=== PATIENT | male | born 1965 | race Caucasian/White ===

== ENCOUNTER 2017-03-20 19:31 | Emergency (ER) | payer OTHER ==
[2017-03-20 19:49] VITALS: RESP 16; TEMP 98.8
[2017-03-20] MEDS: NS IRR ONE (20:05)
--- NOTE | 2017-03-20 20:56 | EDPHY ---
H & P Time Seen by Provider: 03/20/17 19:41 HPI/ROS: CHIEF COMPLAINT: Chemical burn to the eye HISTORY OF PRESENT ILLNESS: This is a 51-year-old gentleman who was using a commercial goldman, mold, and mildew remover ([employer]) which contains 9.9% benzyl ammonia chloride, solution has a pH of 8.0. Patient had makes the solution with water and was applying at using a a hose attached to a spray bottle. The wand came loose and the solution sprayed onto his face. This occurred approximately 5-10 minutes prior to arrival. Solution also splattered onto his face and he notices that the left shoulder if his shirt as well as his left thigh pain and leg is damp. Patient denies swallowing any of the solution. He has no respiratory distress. No burning in his throat. No cough. He was otherwise well. REVIEW OF SYSTEMS: Aside from elements discussed in the HPI, a comprehensive 10-point review of systems was reviewed and is negative. PAST MEDICAL HISTORY: Hypertension. SOCIAL HISTORY: Here with his . VITAL SIGNS: see nurse's notes. GENERAL: Well-developed, well-nourished, in no acute distress. Complaining of irritation in his eyes bilaterally. HEENT: Eyes are bilaterally injected. There is no obvious burn around the eyelids. No obvious burn on the forehead. Pupils are equal round reactive to light. Diffuse conjunctival injection bilaterally. No scarring or liquifaction is visible currently. Mouth: No oral lesions. No drooling. Neck: supple, FROM. LUNGS: Clear to auscultation bilaterally, no wheezes, rhonchi or rales. CARDIAC: Regular rate and rhythm, no rubs, murmurs or gallops. ABDOMEN: Soft, nontender, nondistended, bowel sounds normal. BACK: No CVA tenderness. No vertebral tenderness. EXTREMITIES: No edema, FROM. NEURO: Alert and oriented, grossly nonfocal. SKIN: Warm and dry, no rash. Smoking Status: Never smoked Constitutional: Initial Vital Signs Temperature (C) 37.1 C 03/20/17 19:45 Heart Rate 75 03/20/17 19:45 Respiratory Rate 16 03/20/17 19:45 Blood Pressure 145/94 H 03/20/17 19:45 O2 Sat (%) 93 03/20/17 19:45 O2 Delivery Mode Room Air Allergies/Adverse Reactions: No Known Allergies Allergy (Unverified 03/20/17 19:44) Home Medications: Medication Instructions Recorded Losartan Potassium 03/20/17 Prevacid 03/20/17 Medical Decision Making ED Course/Re-evaluation: pH of the patient's eyes on initial evaluation was 8.0. Bilateral irrigation utilizing Wilfrido lens was immediately undertaken. Patient had 1 L of irrigant through the Wilfrido lens to each eye. Recheck demonstrates pH of 8.0 in the corners of the eye. Additional L of normal saline irrigant was administered to each eye. Patient also had soap and water decontamination of his left forehead and left side of the face. Course was discussed with poison control. Case [id number]. They recommend continuous irrigation until the patient's pH is 7. They also recommend that the patient have a 30 minutes shower with soap and water to remove any contaminant from his skin. Patient received a total of for 4500 cc of irrigation. He reports discomfort in his right eye has resolved. He reports ongoing gritty irritation in his left eye. PH recheck consistently is 7.5-8.0. Fluorescein was instilled to check for corneal abrasions. None were visualized. Patient's course was discussed with Dr. Ro. She recommends that the patient is feeling better and only has irritation of his eyes he should be discharged with artificial tears, erythromycin ointment 3 times a day for 3 days , and close follow-up. I discussed these recommendations with the patient. I again offered him ongoing irrigation. He believes the irritation in his left eye is due to the use of the Wilfrido lens in the irrigation. He does understand the importance of making sure the fluid has been fully washed out. On re-examination of the eye the left eye has minimal conjunctival injection. Patient was discharged home with instructions as above. He understands that if his pain should worsen tonight, if he should have pain tomorrow, or have other concerns he may follow up with Dr. Ro. Differential Diagnosis: Differential diagnosis for the patient's presenting complaints includes corneal abrasion, conjunctivitis, chemical burn, topical skin burn, alkali burn, acid burn. - Data Points Medications Given: Discontinued Medications Erythromycin (Erythromycin 0.5%) 1 jean EACHEYE ONCE ONE Stop: 03/20/17 23:03 Last Admin: 06/16/17 23:09 Dose: 1 jean Sodium Chloride (Ns) 4,500 mls @ 0 mls/hr IRR ONCE ONE PRN Reason: Wide Open Stop: 03/20/17 21:26 Last Admin: 03/20/17 20:05 Dose: 4,500 mls Departure - Departure Disposition: Home, Routine, Self-Care Clinical Impression: Alkaline chemical burn of cornea and conjunctival sac Qualifiers: Encounter type: initial encounter Laterality: unspecified laterality Qualified Code(s): T26.60XA - Corrosion of cornea and conjunctival sac, unspecified eye, initial encounter Eye pain Qualifiers: Laterality: bilateral Qualified Code(s): H57.13 - Ocular pain, bilateral Condition: Good Instructions: Chemical Eye Perry (ED), Chemical Skin Burn (ED) Additional Instructions: Please take of 30 minutes shower with soap and water when you arrived home. Please use artificial tears every couple of hours when you are awake. Please use erythromycin ointment 3 times a day for the next 3 days. Your eyes should feel much better by tomorrow morning. If you have severe pain in your eyes or have other concerns, you may call Dr. Ro's office at [phone] and leave a message. She will return the call. Referrals: ELBERT LEE DO [Other] - As per Instructions Doreen Ro MD [Non Staff Provider (MD)] - As per Instructions
[2017-03-20] MEDS ORDERED: ERYTHROMYCIN 0.5% 1 GM OPHT.OINT EACHEYE ONE (23:02)
[2017-03-20 23:32] VITALS: BP 142/75; PULSE 74; O2SAT 98
== END 2017-03-20 23:00 | disposition home or self-care (01) ==
LOC: CED 19:31
DX: T54.3X1A Toxic effect of corrosive alkalis and alkali-like substances, accidental (unintentional), initial encounter (principal); T26.61XA Corrosion of cornea and conjunctival sac, right eye, initial encounter; T26.62XA Corrosion of cornea and conjunctival sac, left eye, initial encounter; I10 Essential (primary) hypertension; T32.0 Corrosions involving less than 10% of body surface; X58.XXXA Exposure to other specified factors, initial encounter

== ENCOUNTER → 2018-03-23 | Outpatient (CLI) | payer OTHER | LOC: CIMAGING 08:30 | PROVIDERS: ATTEND Family Medicine | DX: M54.12 Radiculopathy, cervical region (principal); M50.30 Other cervical disc degeneration, unspecified cervical region | CPT/HCPCS: 72040-PO ==

== ENCOUNTER 2018-04-13 23:31 | Emergency (ER) | payer OTHER ==
--- NOTE | 2018-04-13 23:43 | EDPHY ---
H & P Stated Complaint: c/o HUTCHINSON on and off x 6wks - inc tonight- took 800mg motrin @ 2200 Time Seen by Provider: 04/13/18 23:42 HPI/ROS: 53-year-old male with a history of hypertension, GERD with headache, neck and shoulder pain for the last 6 weeks. Has had some radiation of neck pain into left shoulder , left upper arm. He states today's headache is the worst headache of his life he feels like his head is going to explode and he rates his pain as a 15/10. Additionally he has ongoing neck pain, left upper trapezius pain and radiation of that pain into the left shoulder and left hand. He saw a pcp today who started him on Oxycontin for the pain and he is awaiting approval from his insurance for an MRI. No fever or chills. Review of systems as per hpi General no fever no chills no weakness HEENT no eye pain no eye discharge. No eye redness, no sore throat Respiratory no cough, no shortness of breath Cardiac no chest pain, no peripheral edema GI no abdominal pain, no diarrhea, no constipation, no nausea, no vomiting no flank pain, no hematuria, no dysuria Musculoskeletal positive myalgias, no joint pain Heme no easy bruising, no easy bleeding Endo no polyuria, no polydipsia Skin no rashes, no pruritus Neuro no syncope, no dizziness, positive headaches Psych is no suicidal ideation, no homicidal ideation Source: Patient Exam Limitations: No limitations - Personal History Current Tetanus Diphtheria and Acellular Pertussis (TDAP): Yes Tetanus Vaccine Date: unsure - Medical/Surgical History Hx Asthma: No Hx Chronic Respiratory Disease: No Hx Diabetes: No Hx Cardiac Disease: Yes Hx Renal Disease: No Hx Cirrhosis: No Hx Alcoholism: No Hx HIV/AIDS: No Hx Splenectomy or Spleen Trauma: No Other PMH: hypertension,GERD - Family History Significant Family History: No pertinent family hx - Social History Smoking Status: Never smoked Alcohol Use: Occasionally Drug Use: None - Physical Exam Exam: 53-year-old male in severe distress secondary to headache Pressure 179/117 HEENT atraumatic normocephalic, extraocular muscles intact, anicteric Neck supple, midline tenderness to palpation of cervical spine Lungs clear to auscultation bilaterally Heart regular rate and rhythm without murmur rub or gallop Abdomen nondistended normoactive bowel sounds soft nontender Back no CVA tenderness, no step-offs, no thoracic or lumbar spinal tenderness Left upper back tenderness no ecchymosis no rash Extremities no cyanosis clubbing or edema Neuro alert and oriented, no focal deficits gait intact Constitutional: Initial Vital Signs Temperature (C) 36.6 C 04/13/18 23:39 Heart Rate 84 04/13/18 23:39 Respiratory Rate 20 04/13/18 23:39 Blood Pressure 179/117 H 04/13/18 23:39 O2 Sat (%) 94 04/13/18 23:39 O2 Delivery Mode Room Air O2 (L/minute) 2 Allergies/Adverse Reactions: No Known Allergies Allergy (Unverified 03/20/17 19:44) Home Medications: Medication Instructions Recorded Losartan Potassium 03/20/17 Prevacid 03/20/17 Gabapentin 04/13/18 Losartan Potassium 04/13/18 oxyCODONE HCL/ACETAMINOPHEN 04/14/18 Medical Decision Making ED Course/Re-evaluation: Patient seen and evaluated for"the worst headache of his life" Location of headaches or diffuse, occipital and vertex CT brain negative CT C-spine DJD at C5-C6 Labs WBC 10 H&H 18 and 53 Sed rate 5 CRP 15 Chest x-ray negative EKG normal sinus rhythm, nonspecific ST flattening in the inferior leads Impression/plan Severe headache, suddenly worsening today Rule out subarachnoid hemorrhage Discussed with attending physician quality control supervisor at [facility], to continue the workup by performing an MRI MRA. Differential Diagnosis: Differential diagnosis considered but not limited to: Severe headache-subarachnoid hemorrhage, brain tumor, cerebral edema, venous sinus thrombosis, meningitis, headache secondary to hypertension Neck pain-cervical radiculopathy, osteoarthritis, cervical strain, epidural abscess - Data Points Laboratory Results: Laboratory Results 04/13/18 23:30 04/14/18 04/14/18 04/13/18 00:00 00:00 23:30 Hct ESR PT INR APTT POC Sodium 142 mEq/L mEq/L (135-145) POC Potassium 3.4 mEq/L mEq/L (3.3-5.0) POC Chloride 101.0 mEq/L mEq/L (97-110) POC Total CO2 30 mEq/L mEq/L (22-31) POC BUN 17 mg/dL mg/dL (7-23) POC Creatinine 1.3 mg/dL mg/dL (0.7-1.3) POC Glucose 118 mg/dL H mg/dL (70-100) POC Calcium 9.4 mg/dL mg/dL (8.5-10.4) Magnesium 2.0 mg/dL mg/dL (1.6-2.3) POC Troponin I 0.00 ng/mL ng/mL (0.00-0.08) C-Reactive Protein 15.0 mg/L H mg/L (<10.0) 04/13/18 04/13/18 23:30 23:30 Hct 53.5 % H % (40.0-51.0) ESR 5 MM/HR MM/HR (0-20) PT 12.6 SEC SEC (12.0-15.0) INR 0.92 (0.83-1.16) APTT 28.1 SEC SEC (23.0-38.0) POC Sodium POC Potassium POC Chloride POC Total CO2 POC BUN POC Creatinine POC Glucose POC Calcium Magnesium POC Troponin I C-Reactive Protein Medications Given: Discontinued Medications Diphenhydramine HCl (Benadryl Injection) 25 mg IVP EDNOW ONE Stop: 04/14/18 00:01 Last Admin: 04/14/18 00:31 Dose: 25 mg Fentanyl (Sublimaze) 50 mcg IVP EDNOW ONE Stop: 04/14/18 00:01 Last Admin: 04/14/18 00:31 Dose: 50 mcg Fentanyl (Sublimaze) 50 mcg IVP EDNOW ONE Stop: 04/14/18 02:10 Last Admin: 04/14/18 02:12 Dose: 50 mcg Labetalol HCl (Trandate Injection) 20 mg IVP EDNOW ONE Stop: 04/13/18 23:54 Last Admin: 04/14/18 00:31 Dose: 20 mg Metoclopramide HCl (Reglan Injection) 10 mg IVP EDNOW ONE Stop: 04/14/18 00:01 Last Admin: 04/14/18 00:31 Dose: 10 mg Point of Care Test Results: CBC CBC Collection Date 04/14/18 CBC Collection Time 23:55 WBC 10.1 RBC 6.31 HGB 18.3 HCT 54.7 PLT 265 Neut # 7.5 Neut 73.7 LYMPH # 1.5 LYMPH 15.3 Other WBC # 1.1 Other WBC 11 MCV 86.7 Chemistry 04/14/18 04/14/18 00:00 00:00 POC Sodium 142 mEq/L mEq/L (135-145) POC Potassium 3.4 mEq/L mEq/L (3.3-5.0) POC Chloride 101.0 mEq/L mEq/L (97-110) POC Total CO2 30 mEq/L mEq/L (22-31) POC BUN 17 mg/dL mg/dL (7-23) POC Creatinine 1.3 mg/dL mg/dL (0.7-1.3) POC Glucose 118 mg/dL H mg/dL (70-100) POC Calcium 9.4 mg/dL mg/dL (8.5-10.4) POC Troponin I 0.00 ng/mL ng/mL (0.00-0.08) D-Dimer D-Dimer Collection Date 04/14/18 D-Dimer Collection Time 23:55 D-Dimer (ng/ml) <100 Departure - Departure Disposition: [facility] ER Clinical Impression: Severe headache Condition: Fair Additional Instructions: Patient to go directly to [facility] ED for further evaluation of severe headache. Referrals: Patient,NotPresent [Unknown] - As per Instructions
[2018-04-13] MEDS ORDERED: LABETALOL HCL 5 MG/ML 20 ML MDV IVP ONE (23:53)
[2018-04-14] MEDS ORDERED: METOCLOPRAMIDE 10 MG/2 ML VIAL IVP ONE
--- NOTE | 2018-04-14 00:06 | CPEKG ---
Heart Rate: 92 RR Interval: 652 P-R Interval: 156 QRSD Interval: 88 QT Interval: 320 QTC Interval: 396 P Evans: 54 QRS Evans: 45 T Wave Evans: -13 EKG Severity - BORDERLINE ECG - EKG Impression: SINUS RHYTHM EKG Impression: BORDERLINE INFERIOR Q WAVES EKG Impression: BORDERLINE T ABNORMALITIES, INFERIOR LEADS Electronically Signed By: Sebastian Ortiz 18-Apr-2018 09:11:14
[2018-04-14 01:03] LABS: INR 0.92 (0.83-1.16); PROTIME(PATIENT) 12.6 SEC (12.0-15.0)
[2018-04-14] MEDS ORDERED: fentaNYL 100 MCG/2 ML INJ IVP ONE ×2 (02:09)
[2018-04-14] MEDS ORDERED: HYDROmorphONE/DILAUDID 2 MG/ML INJ IVP ONE (03:11)
[2018-04-14] MEDS ORDERED: NS 1,000 ML IV ONE (03:11)
[2018-04-14] MEDS ORDERED: PROMETHAZINE HCL 25 MG/ML INJ IVP ONE (03:11)
--- NOTE | 2018-04-14 03:18 | EDPHY ---
H & P Stated Complaint: c/o HUTCHINSON on and off x 6wks - inc jean- took 800mg motrin @ 2200 Time Seen by Provider: 04/13/18 23:42 HPI/ROS: HPI CHIEF COMPLAINT: Headache, transfer from [facility] HISTORY OF PRESENT ILLNESS: Patient very pleasant 53-year-old male, he has a history of hypertension and takes losartan, additionally has a history of headaches, however does not take any daily headache medication. He states tonight around 10:00 p.m. He was trying to go to sleep and he developed a headache. Patient describes the headache initially stabbing from his left shoulder and left neck it radiates up from his neck posteriorly up through his occiput on both sides and then gradually goes over the top of his head. He reports to me that he did not have any vomiting. It started at 10:00 p.m.. He does not remember it being thunderclap. However he does remember being very intense possibly the worst headache of his life. He states his skin was very sensitive when he went to touch his scalp. He states he could not touches scalp as it caused the pain to get worse. Patient denies any focal weakness or numbness or tingling, denies visual disturbance. He did have photophobia. Denies any chest pain or significant shortness of breath. Denies fever. No nuchal rigidity. Patient reports to me he has been having headaches for the past 6 weeks that mainly stem from his left neck and go down his left shoulder of which she describes as a cervical radiculopathy. States he seen his primary care doctor multiple times for this and put on narcotic pain medicine as well as gabapentin. Without much relief. His primary care doctor ordered an MRI of his cervical spine a multiple times however it kept getting declined by insurance company. Jean he went to [facility] Emergency room for headache around 11 o'clock at night. At that time he had a workup for his headache which included a CT scan of his head and CT cervical spine without contrast which is unremarkable. Was noted he was hypertensive there and he was given pain control and blood pressure medication and his headache gradually improved, and blood pressure came down. Is neurological exam was unremarkable. After further discussion with the patient and ER physician it was determined that given this is the worst headache of his life and he was hypertensive that subarachnoid hemorrhage should be ruled out and recommend MRI of the brain and MRA. He was sent over to [facility] emergency room for the studies. Upon arrival to the emergency room he is alert and oriented he is in no acute distress, he states his headache is much improved. Denies any chest pain shortness of breath, denies focal weakness numbness or tingling. He states the headache was global stemmed from his neck up through the back of the occiput gradually throughout the top of his head. Very sensitive to touch. Of note upon arrival to the emergency room he is hypertensive. Additionally patient is reported to me that he has had multiple chiropractic adjustments. He does state he has been compliant with his losartan. He typically takes it in the morning. Past Medical History: Hypertension, headaches Past Surgical History: Denies any recent surgery Social History: Denies daily use drugs alcohol tobacco. at bedside. Family History: Noncontributory ROS REVIEW OF SYSTEMS: A comprehensive 10 point review of systems is otherwise negative aside from elements mentioned in the history of present illness. Exam Constitutional appears well nontoxic no acute distress, triage nursing summary reviewed, vital signs reviewed, awake/alert. Hypertensive upon arrival. Eyes normal conjunctivae and sclera, EOMI, PERRLA. HENT normal inspection, atraumatic, moist mucus membranes, no epistaxis, neck supple/ no meningismus, no raccoon eyes. Respiratory clear to auscultation bilaterally, normal breath sounds, no respiratory distress, no wheezing. Cardiovascular rate normal, regular rhythm, no murmur, no edema, distal pulses normal. Gastrointestinal soft, non-tender, no rebound, no guarding, normal bowel sounds, no distension, no pulsatile mass. Genitourinary no CVA tenderness. Musculoskeletal no midline vertebral tenderness, full range of motion, no calf swelling, no tenderness of extremities, no meningismus, good pulses, neurovascularly intact. Skin pink, warm, & dry, no rash, skin atraumatic. Neurologic awake, alert and oriented x 3, AAOx3, moves all 4 extremities equally, motor intact, sensory intact, CN II-XII intact, normal cerebellar, normal vision, normal speech. Psychiatric normal mood/affect. Heme/Lymph/Immune no lymphadenopathy. Differential Diagnosis: Includes but is not limited to in a particular order tension headache, cluster headache, migraine headache, subarachnoid hemorrhage, cervical radiculopathy, cervical radiculopathy causing headache or migraine headache, muscle spasm, neck spasm Medical Decision Making: Plan for this patient: Will proceed MRI brain without, MRA brain head and neck. Re-evaluation: MRI of the brain without contrast called to me by Dr. Rosas, negative. MRA of the head and neck is negative for any arterial disease process. Additionally noted on the MRI of the head the CSF around the optic nerve space is little bit enlarged skin seen in intracranial hypertension. Recommend outpatient ophthalmology evaluation. And Neurology outpatient. I went over this with the patient. He does feel much better in terms of pain control after IV pain medicine, is blood pressures improved. He is comfortable going home. I did discussed return precautions with me understands return emergency room if develops worsening headache, neck pain, fever, vomiting or not doing well. Will separately given ophthalmology referral. Recommend he follows back up with his primary care doctor. Source: Patient - Personal History Current Tetanus Diphtheria and Acellular Pertussis (TDAP): Yes Tetanus Vaccine Date: unsure - Medical/Surgical History Hx Asthma: No Hx Chronic Respiratory Disease: No Hx Diabetes: No Hx Cardiac Disease: Yes Hx Renal Disease: No Hx Cirrhosis: No Hx Alcoholism: No Hx HIV/AIDS: No Hx Splenectomy or Spleen Trauma: No Other PMH: hypertension,GERD - Family History Significant Family History: No pertinent family hx - Social History Smoking Status: Never smoked Constitutional: Initial Vital Signs Temperature (C) 36.6 C 04/13/18 23:39 Heart Rate 84 04/13/18 23:39 Respiratory Rate 20 04/13/18 23:39 Blood Pressure 179/117 H 04/13/18 23:39 O2 Sat (%) 94 04/13/18 23:39 O2 Delivery Mode Room Air O2 (L/minute) 2 Allergies/Adverse Reactions: No Known Allergies Allergy (Unverified 03/20/17 19:44) Home Medications: Medication Instructions Recorded Losartan Potassium 03/20/17 Prevacid 03/20/17 Gabapentin 04/13/18 Losartan Potassium 04/13/18 oxyCODONE HCL/ACETAMINOPHEN 04/14/18 Medical Decision Making - Data Points Laboratory Results: Laboratory Results 04/13/18 23:30 04/14/18 04/14/18 04/13/18 00:00 00:00 23:30 Hct ESR PT INR APTT POC Sodium 142 mEq/L mEq/L (135-145) POC Potassium 3.4 mEq/L mEq/L (3.3-5.0) POC Chloride 101.0 mEq/L mEq/L (97-110) POC Total CO2 30 mEq/L mEq/L (22-31) POC BUN 17 mg/dL mg/dL (7-23) POC Creatinine 1.3 mg/dL mg/dL (0.7-1.3) POC Glucose 118 mg/dL H mg/dL (70-100) POC Calcium 9.4 mg/dL mg/dL (8.5-10.4) Magnesium 2.0 mg/dL mg/dL (1.6-2.3) POC Troponin I 0.00 ng/mL ng/mL (0.00-0.08) C-Reactive Protein 15.0 mg/L H mg/L (<10.0) 04/13/18 04/13/18 23:30 23:30 Hct 53.5 % H % (40.0-51.0) ESR 5 MM/HR MM/HR (0-20) PT 12.6 SEC SEC (12.0-15.0) INR 0.92 (0.83-1.16) APTT 28.1 SEC SEC (23.0-38.0) POC Sodium POC Potassium POC Chloride POC Total CO2 POC BUN POC Creatinine POC Glucose POC Calcium Magnesium POC Troponin I C-Reactive Protein Medications Given: Discontinued Medications Diphenhydramine HCl (Benadryl Injection) 25 mg IVP EDNOW ONE Stop: 04/14/18 00:01 Last Admin: 04/14/18 00:31 Dose: 25 mg Fentanyl (Sublimaze) 50 mcg IVP EDNOW ONE Stop: 04/14/18 00:01 Last Admin: 04/14/18 00:31 Dose: 50 mcg Fentanyl (Sublimaze) 50 mcg IVP EDNOW ONE Stop: 04/14/18 02:10 Last Admin: 04/14/18 02:12 Dose: 50 mcg Hydromorphone HCl (Dilaudid) 1 mg IVP EDNOW ONE Stop: 04/14/18 03:12 Last Admin: 04/14/18 03:17 Dose: 1 mg Sodium Chloride (Ns) 1,000 mls @ 0 mls/hr IV ONCE ONE PRN Reason: Wide Open Stop: 04/14/18 03:12 Last Admin: 04/14/18 03:18 Dose: 1,000 mls Labetalol HCl (Trandate Injection) 20 mg IVP EDNOW ONE Stop: 04/13/18 23:54 Last Admin: 04/14/18 00:31 Dose: 20 mg Metoclopramide HCl (Reglan Injection) 10 mg IVP EDNOW ONE Stop: 04/14/18 00:01 Last Admin: 04/14/18 00:31 Dose: 10 mg Promethazine HCl (Phenergan) 6.25 mg IVP ONCE ONE Stop: 04/14/18 03:12 Last Admin: 04/14/18 03:20 Dose: 6.25 mg Point of Care Test Results: CBC CBC Collection Date 04/14/18 CBC Collection Time 23:55 WBC 10.1 RBC 6.31 HGB 18.3 HCT 54.7 PLT 265 Neut # 7.5 Neut 73.7 LYMPH # 1.5 LYMPH 15.3 Other WBC # 1.1 Other WBC 11 MCV 86.7 Chemistry 04/14/18 04/14/18 00:00 00:00 POC Sodium 142 mEq/L mEq/L (135-145) POC Potassium 3.4 mEq/L mEq/L (3.3-5.0) POC Chloride 101.0 mEq/L mEq/L (97-110) POC Total CO2 30 mEq/L mEq/L (22-31) POC BUN 17 mg/dL mg/dL (7-23) POC Creatinine 1.3 mg/dL mg/dL (0.7-1.3) POC Glucose 118 mg/dL H mg/dL (70-100) POC Calcium 9.4 mg/dL mg/dL (8.5-10.4) POC Troponin I 0.00 ng/mL ng/mL (0.00-0.08) D-Dimer D-Dimer Collection Date 04/14/18 D-Dimer Collection Time 23:55 D-Dimer (ng/ml) <100 Departure - Departure Disposition: Home, Routine, Self-Care Clinical Impression: Severe headache Condition: Fair Instructions: Acute Headache (ED), Cervical Radiculopathy (ED), Neck Pain (ED) , Acute Neck Pain (ED) Additional Instructions: 1. Follow up with your primary care doctor. 2. Return emergency room if you have worsening pain questions or concerns. Referrals: Patient,NotPresent [Unknown] - As per Instructions Marshal Dixon MD [Medical Doctor] - As per Instructions
[2018-04-14] MEDS ORDERED: GADOBUTROL 10 ML VIAL IVP ONE (03:30)
[2018-04-14 05:33] VITALS: BP 137/89
[2018-04-14] MEDS ORDERED: LOSARTAN POTASSIUM 50 MG TAB PO SCH (09:00)
== END 2018-04-14 05:52 | disposition home or self-care (01) ==
LOC: CED 04-14 02:26
DX: R51 Headache (principal); I10 Essential (primary) hypertension
CPT/HCPCS: 70450-PO; 71046-PO; 72125-PO; 80048-PO; 84484-PO; 96374; A9585; J1170; J1200; J2550; J2765; J3010

== ENCOUNTER 2018-12-29 23:35 | Observation (INO) | payer OTHER ==
[2018-12-30] MEDS ORDERED: METOCLOPRAMIDE 10 MG/2 ML VIAL IVP ONE (00:03)
[2018-12-30] MEDS ORDERED: LABETALOL HCL 5 MG/ML 20 ML MDV IVP ONE (00:03)
[2018-12-30] MEDS ORDERED: ONDANSETRON 4 MG/2 ML VIAL ONE (00:06)
--- NOTE | 2018-12-30 00:09 | EDPHY ---
H & P Stated Complaint: Dizzy, nausea, Chest pressure, headache. Time Seen by Provider: 12/30/18 00:01 HPI/ROS: This patient reports symptoms of headache, dizziness, nausea clamminess. His drove here by private car also provides history. He explains that he had bad headache at 8:00 p.m. And took 6 ibuprofen with relief until he developed symptoms of dizziness, nausea with diaphoresis. His reports that he was "stumbling on his feet at this point seems slightly confused. He then developed recurrent headache with diffuse in location pressure in sensation 8/ 10 associated with photophobia. Shortly after arrival here he also reports onset of chest pain 2/10 intensity. He has ongoing feeling of dizziness and nausea currently. He is noted to be hypertensive here with a diastolic of 115 initially and reports compliance with his losartan medication that he takes daily now for 5 years. He denies any intoxication with alcohol or drugs tonight. ROS: Constitutional: No recent fevers. He felt well prior to this evening. HEENT: Chronic coryza but no recent sinus pain or other new URI symptoms Pulmonary: No shortness of breath or cough Cardiovascular: He denies any heart palpitations. No lower extremity swelling. GI: Nausea but no vomiting. No abdominal pain. : He reports a one-week history of urinary urgency, mild difficulty passing urine slight dysuria. No testicle pain or swelling. No flank pain. Neuro: He denies any current confusion. No focal numbness tingling or weakness. He has difficulty describing the nature of his dizziness. 10 point review of symptoms is performed and otherwise negative with exception of pertinent positives and negatives listed in HPI and ROS Source: Patient Exam Limitations: No limitations - Personal History Current Tetanus/Diphtheria Vaccine: Unsure Current Tetanus Diphtheria and Acellular Pertussis (TDAP): Unsure Tetanus Vaccine Date: unsure - Medical/Surgical History PMH: In April of 2018 this patient had a similar severe headache presented to this facility also with hypertension at that time treated with antihypertensive and IV analgesics with some relief. He subsequently had CT head CT angio neck, MR I and MRA of head and neck with possible tiny aneurysmal dilatation of the distal right internal carotid artery. No other pathology noted at that time Hx Asthma: No Hx Chronic Respiratory Disease: No Hx Diabetes: No Hx Cardiac Disease: Yes Hx Renal Disease: No Hx Cirrhosis: No Hx Alcoholism: No Hx HIV/AIDS: No Hx Splenectomy or Spleen Trauma: No Other PMH: hypertension,GERD,hernia repair 2017 - Family History Significant Family History: No pertinent family hx - Social History Smoking Status: Never smoked Alcohol Use: Rarely Drug Use: None Additional Social History: He denies any stimulants today. No significant caffeine intake. - Physical Exam Exam: Physical exam: Vital signs are normal General: Patient is in no acute distress. HEENT: Is no external evidence of trauma on exam. Eyes: Pupils are equal and reactive to light. Extraocular motions are intact. Optic fundi: Clear with no papilledema or hemorrhage. Nose atraumatic. Ears: Clear bilaterally with no hemotympanum. Oropharynx: No dental trauma or malocclusion. No intraoral lacerations. Eyes: Pupils are equal and reactive to light. Extraocular motions are intact. Optic fundi: Clear with no papilledema or hemorrhage. Lungs: Clear to auscultation bilaterally Neck: Supple no meningismus. Cardiac: Regular rate and rhythm no murmur gallop or rub. Abdomen: Soft nontender no organomegaly Neuro: GCS of 15. NIH Stroke scale of 0. Cranial nerves II through XII intact. Cerebellar exam is normal as judged by symmetric rapid hand movements bilaterally. No pronator drift. No sensory or motor deficits are appreciated. Initial differential diagnosis: Hypertensive emergency, hypertensive encephalopathy, tension headache, Migraine, , ROLL WEIGHER lesion, intracranial bleed, conversion disorder, myocardial ischemic, aortic dissection, aortic aneurysm Constitutional: Initial Vital Signs Temperature (C) 36.5 C 12/29/18 23:49 Heart Rate 81 12/29/18 23:49 Respiratory Rate 20 12/29/18 23:49 Blood Pressure 155/115 H 12/29/18 23:49 O2 Sat (%) 95 12/29/18 23:49 O2 Delivery Mode Room Air O2 (L/minute) 3 Allergies/Adverse Reactions: No Known Allergies Allergy (Verified 12/30/18 01:14) Home Medications: Medication Instructions Recorded Lansoprazole [Prevacid] 30 mg PO DAILY 03/20/17 Losartan Potassium 100 mg PO DAILY 04/13/18 Ibuprofen [Motrin (*)] 200 mg PO DAILY PRN 12/30/18 Testosterone IM [Testosterone 0 mg IM TH 12/30/18 100mg/ml IM inj (*)] Medical Decision Making - Diagnostics EKG Interpretation: 12 lead EKG indication dizziness and chest pain Sinus rhythm at 80 in this EKG performed at 11:52 p.m. Intervals: Normal throughout [place]: P of 71, QRS of 52, T of 35 degrees Overall assessment sinus rhythm with no significant acute ST abnormalities by my interpretation Imaging Results: CT brain: No intra parenchymal hemorrhage or other evidence of bleed or acute intracranial pathology per radiologist report. I Also reviewed these images myself. Imaging: Discussed imaging studies w/ distillery worker general Radiologist (I read the report from [facility] ) ED Course/Re-evaluation: IV, monitor Labetalol 10 mg IV for Hypertension with diastolic of 115 initially after labetalol 10 mg down to a diastolic of 98. Reglan and Benadryl for nausea/headache Fentanyl IV with partial relief of headache. Patient is position with head of the bed elevated to 30 degrees and remains comfortable for the duration of his time in our department though he received 1 repeat dose of labetalol for diastolic the crept up to 113 and again responded with 10 mg dose late all down to a diastolic of under 100 A review of POC labs reveals normal basic metabolic, normal CBC, normal troponin , Shortly after arrival this patient reported onset of substernal chest pressure 2 /10 intensity. He was given the above medications and then taken to CT scan and by the time return from CT at approximately 0020 he reports relief of chest pain without further intervention. Upon return from CT is headache is still 7/10 intensity given a small dose of fentanyl IV for this. Continuous Bedside critical care time: 20 min Discussion: Review of prior visit 04/2018 reveals evidence of possible small aneurysmal dilatation of the right internal carotid near the bifurcation to the middle cerebral artery on MRA of brain. Jean's presentation is concerning for potential sentinel bleed given this hx. of intracerebral aneurysm, htn, H[place], dizziness and the patient warrants further imaging for this. I feel that he should go to the main emergency department to continue his imaging workup and possible admission for any ongoing symptoms. In terms of the patient's brief chest pain this resolved shortly after arrival without specific intervention. He had a nonischemic appearing EKG normal troponin with a heart score of 3 or less. Not think he is having an acute area dissection or cardiac ischemic event. He was symptom-free in terms of any chest symptoms prior to transfer. Dr. Ori Johnson, emergency physician at [facility] emergency department accepts this patient for transfer. Given the patient's dizziness, IV fentanyl and concern for potential intracranial bleed he will go by EMS transport. - Data Points Laboratory Results: Laboratory Results 12/30/18 02:22 12/30/18 02:22 Medications Given: Discontinued Medications Acetaminophen (Tylenol) 650 mg PO Q4HRS PRN PRN Reason: Pain, Mild/Fever, Can Take PO Stop: 06/28/19 04:23 Last Admin: 12/30/18 11:38 Dose: 650 mg Diphenhydramine HCl (Benadryl Injection) 25 mg IVP EDNOW ONE Stop: 12/30/18 00:04 Last Admin: 12/30/18 00:08 Dose: 25 mg Enoxaparin Sodium (Lovenox) 40 mg SC DAILY [facility] Stop: 06/28/19 08:59 Last Admin: 12/30/18 11:39 Dose: 40 mg Fentanyl (Sublimaze) 50 mcg IVP EDNOW ONE Stop: 12/30/18 00:31 Last Admin: 12/30/18 00:36 Dose: 50 mcg Sodium Chloride (Ns) 1,000 mls @ 0 mls/hr IV EDNOW ONE; Wide Open PRN Reason: Protocol Stop: 12/30/18 02:12 Last Admin: 12/30/18 02:32 Dose: 1,000 mls Sodium Chloride (Ns) 1,000 mls @ 100 mls/hr IV CONT [facility] Stop: 06/28/19 04:29 Last Admin: 12/30/18 05:57 Dose: 1,000 mls Labetalol HCl (Trandate Injection) 20 mg IVP EDNOW ONE Stop: 12/30/18 00:04 Last Admin: 12/30/18 00:10 Dose: 10 mg Losartan Potassium (Cozaar) 100 mg PO DAILY [facility] Stop: 06/28/19 10:29 Last Admin: 12/30/18 12:29 Dose: 100 mg Metoclopramide HCl (Reglan Injection) 10 mg IVP EDNOW ONE Stop: 12/30/18 00:04 Last Admin: 12/30/18 00:13 Dose: 10 mg Ondansetron HCl (Zofran) 4 mg IVP EDNOW ONE Stop: 12/30/18 02:13 Last Admin: 12/30/18 02:32 Dose: 4 mg Pantoprazole Sodium (Protonix) 40 mg PO DAILY [facility] Stop: 06/28/19 10:29 Last Admin: 12/30/18 12:29 Dose: 40 mg Point of Care Test Results: CBC CBC Collection Date 12/30/18 CBC Collection Time 23:58 WBC 6.95 RBC 6.58 HGB 18.6 HCT 54.3 PLT 199 Neut # 3.94 Neut 56.8 LYMPH # 2.27 LYMPH 32.7 MCV 82.5 Chemistry 12/30/18 12/30/18 12/30/18 02:25 00:03 00:02 POC Sodium 143 mEq/L mEq/L (135-145) POC Potassium 4.0 mEq/L mEq/L (3.3-5.0) POC Chloride 102.0 mEq/L mEq/L (97-110) POC Total CO2 29 mEq/L mEq/L (22-31) POC BUN 19 mg/dL mg/dL (7-23) POC Creatinine 1.4 mg/dL H mg/dL (0.7-1.3) POC Glucose 105 mg/dL H mg/dL (70-100) POC Calcium 9.9 mg/dL mg/dL (8.5-10.4) POC Troponin I 0.00 ng/mL ng/mL 0.00 ng/mL ng/mL (0.00-0.08) (0.00-0.08) 12/29/18 23:52 POC Sodium POC Potassium POC Chloride POC Total CO2 POC BUN POC Creatinine POC Glucose 99 mg/dL mg/dL (70-100) POC Calcium POC Troponin I Urine Dip Collection Date 12/30/18 Collection Time 12:40 Specific [place] (1.002-1.030) 1.025 PH (5.0-7.5) 6.0 Leukocytes (Negative) Negative Nitrites (Negative) Negative Protein (Negative) Negative Glucose (Negative) Negative Ketones (Negative) Trace Urobilnogen (0.2-1.0 EU) 0.2 Bilirubin (Negative) Negative Blood (Negative) Negative Departure - Departure Disposition: [facility] Clinical Impression: Vascular headache, Hypertensive urgency, Intracerebral aneurysm, Dizziness, Atypical chest pain Clinical Impression: (Ruled Out): Hypertension Condition: Good
[2018-12-30] MEDS ORDERED: fentaNYL 100 MCG/2 ML INJ IVP ONE (00:30)
--- NOTE | 2018-12-30 00:50 | CPEKG ---
Test Reason : OPEN Blood Pressure : / mmHG Vent. Rate : 080 BPM Atrial Rate : 080 BPM P-R Int : 156 ms QRS Dur : 100 ms QT Int : 377 ms P-R-T Axes : 071 052 035 degrees QTc Int : 435 ms Sinus rhythm Borderline T wave abnormalities Confirmed by Compa Gracia ([id number]) on 12/30/2018 12:50:08 AM Referred By: Compa Gracia Confirmed By:Compa Gracia
[2018-12-30] MEDS ORDERED: NS 1,000 ML IV ONE (02:11)
[2018-12-30] MEDS ORDERED: ONDANSETRON 4 MG/2 ML VIAL IVP ONE (02:12)
--- NOTE | 2018-12-30 02:16 | EDPHY ---
H & P Stated Complaint: Dizzy, nausea, Chest pressure, headache. Time Seen by Provider: 12/30/18 00:01 HPI/ROS: HPI CHIEF COMPLAINT: Headache, lightheadedness, chest pain, hypertension HISTORY OF PRESENT ILLNESS: This is a 53-year-old male, presents emergency room from [facility] emergency room for further evaluation and testing. The patient went to [facility] emergency room by private vehicle with his earlier this evening for a headache, some mild left-sided chest pain, and some lightheadedness. Patient tells me around 6:00 p.m. This evening he developed a headache, he decided to leave work drove home in our took some ibuprofen and then felt better. States around 11:00 a.m. At night he then got up out of his chair got very lightheaded felt like he was going to pass out almost blacked out did not fully. He states that he felt kind of nauseous, lightheadedness, developed left -sided chest pain briefly. States that he tried to rest he drank Gatorade, and then tried to get up again and the same thing happened to him. This prompted him to go to the emergency room. In the emergency room he had a rather unremarkable workup with normal blood work , normal EKG, and a CT scan head without contrast watch was negative. He received medications there, his vital signs normalized. However upon further evaluation and reviewed old medical records he had MRA back in April that showed incidental finding of possibly aneurysm. Was felt to be best the patient's interest to be sent to [facility] emergency room for further evaluation of his lightheadedness, headache is pretty much resolved. He presents emergency room denies any complaints at this time is nauseous better , headache homeless:, denies any chest pain. Neurological exam here is unremarkable. I reviewed his ER visits, additionally his MRA. Past Medical History: Significant medical history for hypertension, headaches Past Surgical History: Denies recent surgical history Social History: Denies drugs alcohol tobacco. Family History: Noncontributory ROS REVIEW OF SYSTEMS: 10 Systems were reviewed and negative with the exception of the elements mentioned in the history of present illness. Exam Constitutional triage nursing summary reviewed, vital signs reviewed, awake/ alert. Vital signs stable upon arrival. Appears well. Eyes normal conjunctivae and sclera, EOMI, PERRLA. HENT normal inspection, atraumatic, moist mucus membranes, no epistaxis, neck supple/ no meningismus, no raccoon eyes. Respiratory clear to auscultation bilaterally, normal breath sounds, no respiratory distress, no wheezing. Cardiovascular rate normal, regular rhythm, no murmur, no edema, distal pulses normal. Gastrointestinal soft, non-tender, no rebound, no guarding, normal bowel sounds, no distension, no pulsatile mass. Genitourinary no CVA tenderness. Musculoskeletal no midline vertebral tenderness, full range of motion, no calf swelling, no tenderness of extremities, no meningismus, good pulses, neurovascularly intact. Skin pink, warm, & dry, no rash, skin atraumatic. Neurologic unremarkable neurological exam awake, alert and oriented x 3, AAOx3 , moves all 4 extremities equally, motor intact, sensory intact, CN II-XII intact, normal cerebellar, normal vision, normal speech. Psychiatric normal mood/affect. Heme/Lymph/Immune no lymphadenopathy. Differential Diagnosis: Includes but is not limited to in a particular order hypertensive urgency, hypertensive emergency, intracranial bleed, subarachnoid hemorrhage, aneurysmal bleed, meningitis, encephalitis, anxiety, orthostatic hypotension Medical Decision Making: Plan for this patient IV establishment IV fluid bolus , IV Zofran for nausea, repeat EKG repeat troponin, basic labs, CT angiogram head and neck and re-evaluate. Re-evaluation: EKG interpretation by me on record in [facility] system. Impression time of EKG 2:14 a.m., this is sinus rhythm rate of 57, T-wave flattening inferior leads. No ST elevation. CT angiogram head and neck: Negative for acute intracranial abnormality. This was faxed me by [facility] 2:56 a.m.. Plan for this patient given his symptoms, he has slowly improved emergency she received IV fluids in ankle picture mostly due to ortho hypotension, possibly vagal syncope, setting of dehydration, headache. In positional changes. Patient would feel comfortable being admitted and staying for observation today. This what he perforated Dr. Marysol Khoury to admit the patient for observation today. Source: Patient, EMS, RN notes reviewed, EMS notes reviewed, Other - Personal History Current Tetanus/Diphtheria Vaccine: Unsure Current Tetanus Diphtheria and Acellular Pertussis (TDAP): Unsure Tetanus Vaccine Date: unsure - Medical/Surgical History Hx Asthma: No Hx Chronic Respiratory Disease: No Hx Diabetes: No Hx Cardiac Disease: Yes Hx Renal Disease: No Hx Cirrhosis: No Hx Alcoholism: No Hx HIV/AIDS: No Hx Splenectomy or Spleen Trauma: No Other PMH: hypertension,GERD,hernia repair 2017 - Family History Significant Family History: No pertinent family hx - Social History Smoking Status: Never smoked Constitutional: Initial Vital Signs Temperature (C) 36.5 C 12/29/18 23:49 Heart Rate 81 12/29/18 23:49 Respiratory Rate 20 12/29/18 23:49 Blood Pressure 155/115 H 12/29/18 23:49 O2 Sat (%) 95 12/29/18 23:49 O2 Delivery Mode Room Air O2 (L/minute) 3 Allergies/Adverse Reactions: No Known Allergies Allergy (Verified 12/30/18 01:14) Home Medications: Medication Instructions Recorded Lansoprazole [Prevacid] 30 mg PO DAILY 03/20/17 Losartan Potassium 100 mg PO DAILY 04/13/18 Ibuprofen [Motrin (*)] 200 mg PO DAILY PRN 12/30/18 Testosterone IM [Testosterone 0 mg IM TH 12/30/18 100mg/ml IM inj (*)] Medical Decision Making - Data Points Laboratory Results: Laboratory Results 12/30/18 02:22 12/30/18 02:22 Medications Given: Discontinued Medications Acetaminophen (Tylenol) 650 mg PO Q4HRS PRN PRN Reason: Pain, Mild/Fever, Can Take PO Stop: 06/28/19 04:23 Last Admin: 12/30/18 11:38 Dose: 650 mg Diphenhydramine HCl (Benadryl Injection) 25 mg IVP EDNOW ONE Stop: 12/30/18 00:04 Last Admin: 12/30/18 00:08 Dose: 25 mg Enoxaparin Sodium (Lovenox) 40 mg SC DAILY [facility] Stop: 06/28/19 08:59 Last Admin: 12/30/18 11:39 Dose: 40 mg Fentanyl (Sublimaze) 50 mcg IVP EDNOW ONE Stop: 12/30/18 00:31 Last Admin: 12/30/18 00:36 Dose: 50 mcg Sodium Chloride (Ns) 1,000 mls @ 0 mls/hr IV EDNOW ONE; Wide Open PRN Reason: Protocol Stop: 12/30/18 02:12 Last Admin: 03/28/19 02:32 Dose: 1,000 mls Sodium Chloride (Ns) 1,000 mls @ 100 mls/hr IV CONT [facility] Stop: 06/28/19 04:29 Last Admin: 12/30/18 05:57 Dose: 1,000 mls Labetalol HCl (Trandate Injection) 20 mg IVP EDNOW ONE Stop: 12/30/18 00:04 Last Admin: 12/30/18 00:10 Dose: 10 mg Losartan Potassium (Cozaar) 100 mg PO DAILY [facility] Stop: 06/28/19 10:29 Last Admin: 12/30/18 12:29 Dose: 100 mg Metoclopramide HCl (Reglan Injection) 10 mg IVP EDNOW ONE Stop: 12/30/18 00:04 Last Admin: 12/30/18 00:13 Dose: 10 mg Ondansetron HCl (Zofran) 4 mg IVP EDNOW ONE Stop: 12/30/18 02:13 Last Admin: 12/30/18 02:32 Dose: 4 mg Pantoprazole Sodium (Protonix) 40 mg PO DAILY [facility] Stop: 06/28/19 10:29 Last Admin: 12/30/18 12:29 Dose: 40 mg Point of Care Test Results: CBC CBC Collection Date 12/30/18 CBC Collection Time 23:58 WBC 6.95 RBC 6.58 HGB 18.6 HCT 54.3 PLT 199 Neut # 3.94 Neut 56.8 LYMPH # 2.27 LYMPH 32.7 MCV 82.5 Chemistry 12/30/18 12/30/18 12/30/18 02:25 00:03 00:02 POC Sodium 143 mEq/L mEq/L (135-145) POC Potassium 4.0 mEq/L mEq/L (3.3-5.0) POC Chloride 102.0 mEq/L mEq/L (97-110) POC Total CO2 29 mEq/L mEq/L (22-31) POC BUN 19 mg/dL mg/dL (7-23) POC Creatinine 1.4 mg/dL H mg/dL (0.7-1.3) POC Glucose 105 mg/dL H mg/dL (70-100) POC Calcium 9.9 mg/dL mg/dL (8.5-10.4) POC Troponin I 0.00 ng/mL ng/mL 0.00 ng/mL ng/mL (0.00-0.08) (0.00-0.08) 12/29/18 23:52 POC Sodium POC Potassium POC Chloride POC Total CO2 POC BUN POC Creatinine POC Glucose 99 mg/dL mg/dL (70-100) POC Calcium POC Troponin I Urine Dip Collection Date 12/30/18 Collection Time 12:40 Specific [place] (1.002-1.030) 1.025 PH (5.0-7.5) 6.0 Leukocytes (Negative) Negative Nitrites (Negative) Negative Protein (Negative) Negative Glucose (Negative) Negative Ketones (Negative) Trace Urobilnogen (0.2-1.0 EU) 0.2 Bilirubin (Negative) Negative Blood (Negative) Negative Departure - Departure Disposition: [facility] Acute Clinical Impression: Vascular headache, Hypertensive urgency, Intracerebral aneurysm, Dizziness, Atypical chest pain Condition: Good
[2018-12-30 02:32] LABS: PLATELET COUNT 199 10^3/uL (150-400)
[2018-12-30] MEDS ORDERED: IOPAMIDOL (ISOVUE-370) 150 ML BTL IV ONE (02:37)
[2018-12-30] MEDS ORDERED: ONDANSETRON 4 MG/2 ML VIAL IVP PRN (04:24)
[2018-12-30] MEDS ORDERED: ONDANSETRON DISINTEGRATING 4 MG TAB PO PRN (04:24)
[2018-12-30] MEDS ORDERED: NS 1,000 ML IV SCH (04:30)
--- NOTE | 2018-12-30 04:32 | PDGENHP ---
History and Physical - Chief Complaint Lightheadedness - History of Present Illness 53 yo M w/ HTN presents after period of lightheadedness. The patient thinks he drank minimal water today. He did drink some coffee. He stood up from the cough this evening and felt like he was going to pass out. He also felt nauseous, warm , and diaphoretic. He sat down to rest but the sensation returned twice more so he came to the ED for evaluation. Upon arrival to the [facility] he was noted to be hypertensive. He says he felt better after BP medication and IV fluids. A CT and CTA Head/Neck were performed that did not demonstrate an acute abnormality. At the time of my evaluation he is asymptomatic aside from a mild, posterior headache. He is being admitted for observation. Case discussed with ED physician Dr. Taylor; records reviewed and summarized above. Records reviewed and summarized above. History Information - Allergies/Home Medication List Allergies/Adverse Reactions: No Known Allergies Allergy (Verified 12/30/18 01:14) Home Medications: Prevacid 03/20/17 [Last Taken Unknown] Losartan Potassium 04/13/18 [Last Taken Unknown] Testosterone 12/30/18 [Last Taken Unknown] I have personally reviewed and updated: family history, medical history - Past Medical History hypertension - Surgical History Reports: no pertinent surgical hx - Family History Positive for: hypertension - Social History Smoking Status: Never smoked Alcohol Use: Rarely Drug Use: None Review of Systems Review of Systems: ROS: 10pt was reviewed & negative except for what was stated in HPI & below Physical Exam Physical Exam: Temp Pulse Resp BP Pulse Ox 36.6 C 56 L 16 128/79 H 97 12/30/18 01:58 12/30/18 03:17 12/30/18 03:17 12/30/18 03:17 12/30/18 03:17 Constitutional: no apparent distress, not in pain Eyes: PERRL, EOMI Ears, Nose, Mouth, Throat: moist mucous membranes, no oral mucosal ulcers Cardiovascular: regular rate and rhythym, no murmur, rub, or gallop Respiratory: no respiratory distress, clear to auscultation Gastrointestinal: normoactive bowel sounds, soft, non-tender abdomen Skin: warm, normal color Musculoskeletal: full muscle strength, no muscle tenderness Neurologic: AAOx3, CN II-XII Intact Psychiatric: interacting appropriately, not anxious Lab Data & Imaging Review 12/30/18 02:22 12/30/18 02:22 WBC 6.19 10^3/uL (3.80-9.50) 12/30/18 02:22 RBC 6.05 10^6/uL (4.40-6.38) 12/30/18 02:22 Hgb 17.6 g/dL (13.7-17.5) H 12/30/18 02:22 Hct 51.6 % (40.0-51.0) H 12/30/18 02:22 MCV 85.3 fL (81.5-99.8) 12/30/18 02:22 MCH 29.1 pg (27.9-34.1) 12/30/18 02:22 MCHC 34.1 g/dL (32.4-36.7) 12/30/18 02:22 RDW 12.6 % (11.5-15.2) 12/30/18 02:22 Plt Count 199 10^3/uL (150-400) 12/30/18 02:22 MPV 8.6 fL (8.7-11.7) L 12/30/18 02:22 Neut % (Auto) 70.5 % (39.3-74.2) 12/30/18 02:22 Lymph % (Auto) 21.6 % (15.0-45.0) 12/30/18 02:22 Freestone % (Auto) 6.1 % (4.5-13.0) 12/30/18 02:22 Eos % (Auto) 1.1 % (0.6-7.6) 12/30/18 02:22 Baso % (Auto) 0.5 % (0.3-1.7) 12/30/18 02:22 Nucleat RBC Rel Count 0.0 % (0.0-0.2) 12/30/18 02:22 Absolute Neuts (auto) 4.36 10^3/uL (1.70-6.50) 12/30/18 02:22 Absolute Lymphs (auto) 1.34 10^3/uL (1.00-3.00) 12/30/18 02:22 Absolute Monos (auto) 0.38 10^3/uL (0.30-0.80) 12/30/18 02:22 Absolute Eos (auto) 0.07 10^3/uL (0.03-0.40) 12/30/18 02:22 Absolute Basos (auto) 0.03 10^3/uL (0.02-0.10) 12/30/18 02:22 Absolute Nucleated RBC 0.00 10^3/uL (0-0.01) 12/30/18 02:22 Immature Gran % 0.2 % (0.0-1.1) 12/30/18 02:22 Immature Gran # 0.01 10^3/uL (0.00-0.10) 12/30/18 02:22 POC Sodium 143 mEq/L (135-145) 12/30/18 00:03 Sodium 138 mEq/L (135-145) 12/30/18 02:22 POC Potassium 4.0 mEq/L (3.3-5.0) 12/30/18 00:03 Potassium 3.8 mEq/L (3.5-5.2) 12/30/18 02:22 POC Chloride 102.0 mEq/L (97-110) 12/30/18 00:03 Chloride 101 mEq/L (97-110) 12/30/18 02:22 Carbon Dioxide 24 mEq/l (22-31) 12/30/18 02:22 POC Total CO2 29 mEq/L (22-31) 12/30/18 00:03 Anion Gap 13 mEq/L (6-14) 12/30/18 02:22 POC BUN 19 mg/dL (7-23) 12/30/18 00:03 BUN 23 mg/dL (7-23) 12/30/18 02:22 Creatinine 1.1 mg/dL (0.7-1.3) 12/30/18 02:22 POC Creatinine 1.4 mg/dL (0.7-1.3) H 12/30/18 00:03 Estimated GFR > 60 12/30/18 02:22 Glucose 114 mg/dL (70-100) H 12/30/18 02:22 POC Glucose 105 mg/dL (70-100) H 12/30/18 00:03 POC Calcium 9.9 mg/dL (8.5-10.4) 12/30/18 00:03 Calcium 9.3 mg/dL (8.5-10.4) 12/30/18 02:22 POC Troponin I 0.00 ng/mL (0.00-0.08) 12/30/18 02:25 Visualized and Interpreted EKG results: Yes EKG Interpretation: Positive for: normal sinsus rhythm Assessment & Plan Assessment: 53 yo M w/ hx of HTN presents after presyncopal event. Plan: 1. Presyncope - Patient experienced prolonged episode of near syncope, imbalance , nausea, and diaphoresis after standing up from the couch this evening. His symptoms improved after IV fluids and BP medication in the ED. Symptoms seem consistent with vasovagal event possibly complicated by uncontrolled blood pressure. His work-up has been reassuring including ECG, troponin, and head imaging. - Admit for observation - Maintenance fluids - Monitor on telemetry 2. Hx possible R ICA aneurysm - This was noted on previous MRI performed 04/21. This abnormality was not visualized on today's CTA of the head and neck. 3. Hypertension - BP 160/110 upon arrival to the [facility], but this was in the setting of distress and likely dehydration. BP is now 120/80 after labetalol IV in the need. - Continue home ARB pending reconciliation - PCP follow up for titration Diet - Regular Code - Full Ppx- LMWH Dispo - Admit under observation status
[2018-12-30] MEDS: ACETAMINOPHEN 325 MG TAB PO PRN ×2 (05:57→11:38)
[2018-12-30] MEDS ORDERED: ENOXAPARIN 40 MG/0.4 ML SYR SC SCH (09:00)
[2018-12-30 09:36] LABS: PLATELET COUNT 172 10^3/uL (150-400)
[2018-12-30] MEDS ORDERED: LOSARTAN POTASSIUM 50 MG TAB PO SCH (10:30)
[2018-12-30] MEDS ORDERED: PANTOPRAZOLE SODIUM 40 MG TAB PO SCH (10:30)
--- NOTE | 2018-12-30 11:24 | ECHO ---
[email or web address] [address] [address] Main: [phone] Echocardiography Examination Transthoracic Name: JIMMY COOK MR#: [id number] Study Date: 12/30/2018 Study Time: 10:44 AM Date of : 1965 Age: 53 year(s) Height: 188 cm (74 in.) Weight: 106.6 kg (235 lb.) BSA: 2.33 m2 Gender: Male Examination: Echo Contrast: Image Quality: Adequate Rhythm: Heart Rate: BP: / Indication: Cardiac: syncope, faintness Procedure Staff Referring Physician: Upper Cutter Machine: Jacqui Case RDCS Reading Physician: Aristides Denson MD Requesting Provider: Ordering Physician: Eren Armando Indication: Cardiac: syncope, faintness Measurements Chambers AV/MV Label Value Normal Value Label Value Normal Value EF lower range (%) 60 % AV PGmax 10 mmHg EF upper range (%) 65 % AV PGmean 6 mmHg IVSd, 2D 1 cm (0.6cm - 1.1cm) AV Vmax 1.54 m/s LVDd, 2D 4.3 cm (4.2cm - 5.9cm) PANCHO D (continuity eq. 1.9 cm2 LVDs, 2D 3.1 cm (2.1cm - 4cm) VTI) LVEF, 2D 55 % (54% - 74%) MV A Vmax 0.6 m/s LVEF, BP 60 % (55% - 70%) MV DT 211 ms LVOT PGmean 3 mmHg MV E' lateral 0.12 m/s LVOT Vmean 0.77 m/s MV E' mean 0.1 m/s LVOTd 2 cm (1.9cm - 2.1cm) MV E' septal 0.09 m/s LVPWd, 2D 1 cm (0.6cm - 1cm) MV E Vmax 0.81 m/s LA Volume, BP 52 ml (18ml - 58ml) MV E/A 1.35 LADs, 2D 3 cm (3cm - 4cm) MV E/E' lateral 6.5 LAESV index, BP 22.3 ml/m2 MV E/E' mean 7.71 RA Area 17.5 cm2 MV E/E' septal 8.6 (0.5 - 1.7) Additional Vessels MV PHT 0.06 s Label Value Normal Value MV PHT 63 ms AoAsc 3.3 cm MVA PHT 3.5 cm2 AoRoot, 2D 3.1 cm (1.4cm - 2.6cm) TV/PV Patient: JIMMY COOK Study Date: 12/30/2018 Page 1 of 3 10:44 AM IVC 1.3 cm (1.2cm - 2.3cm) Label Value Normal Value RA Pressure 5 mmHg RVSP 40 mmHg TR Pmax 35 mmHg TR Vmax 2.96 m/s PV PGmax 4 mmHg PV Vmax, Caliper 0.98 m/s (0.6m/s - 0.9m/s) Conclusions Overall Conclusions: No pericardial effusion. Preserved LV systolic function. Mild tricuspid regurgitation with right ventricular systolic pressure 40 mm of mercury. Findings Left Ventricle: Left ventricle is normal in size. Normal global systolic left ventricular function. The ejection fraction, measured by Simpsons method, is 60 %. EF range is estimated at 60 % - 65 %. Left ventricle wall thickness is normal. There are no regional wall motion abnormalities. Right Ventricle: Mildly dilated right ventricle. Right ventricular systolic function is normal. Left Atrium: The left atrium is normal in size. Right Atrium: The right atrium is normal in size. Mitral Valve: Mitral valve appears structurally normal. Mild mitral regurgitation. No mitral valve stenosis. Aortic Valve: Aortic leaflets are structurally normal. No significant aortic valve regurgitation. There is no aortic stenosis. Tricuspid Valve: Tricuspid valve leaflets are structurally normal. Mild tricuspid regurgitation. No tricuspid valve stenosis. Right Ventricular systolic pressure is measured at 40 mmHg. Pulmonary artery pressure is mildly increased. Pulmonic Valve: Pulmonic leaflets are structurally normal. Mild pulmonic valve regurgitation is present. Aorta: The aortic root size in 2D measures 3.1 cm. The ascending aorta measures 3.3 cm. Aorta Measurements AoRoot, 2D is 3.1 cm. IVC: The inferior vena cava is normal in size. Pericardium: No pericardial effusion. Exam Details Procedure Ordered: Echo Procedure Status: Routine study Image Quality: Adequate Facility Location: Cardiac Echo 1 (No Signature Object) Patient: JIMMY COOK Study Date: 12/30/2018 Page 2 of 3 10:44 AM Patient: JIMMY COOK Study Date: 12/30/2018 Page 3 of 3 10:44 AM [id number]
--- NOTE | 2018-12-30 15:05 | GCON ---
[f rep st] CONSULTATION DATE OF CONSULTATION: 12/30/2018 REASON FOR CONSULTATION: Incidental aneurysm finding. HOSPITAL COURSE/HISTORY OF MAJOR MEDICAL FINDINGS: The patient is a 53-year-old gentleman who presen caitlin to the emergency room with a period of lightheadedness. He does have a history of hypertension a nd takes losartan at baseline. 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 There was no acute hemorrhage iden tified. Based on this, Neurosurgery was consulted given the findings of the aneurysm. Upon talking to the patient, he has concerns about these intermittent headaches and lightheadedness that he has be en having. He denies any other neurological changes. REVIEW OF SYSTEMS: Review of systems is negative other than what is stated in the HPI. Please see p ertinent negatives and pertinent positives. PAST MEDICAL HISTORY: Significant for hypertension. PAST SURGICAL HISTORY: The patient had umbilical hernia repair. FAMILY HISTORY: Positive for hypertension and diabetes in his mother. SOCIAL HISTORY: The patient has never smoked. He does not use any alcohol or illicit drugs. HOME MEDICATIONS: Include Prevacid, losartan, and testosterone. ALLERGIES: No known drug allergies. PHYSICAL EXAMINATION: VITAL SIGNS: His blood pressure is 129/82, heart rate is 63, respiratory rate is 17. He is 95% on room air. Temperature is 36.6. GENERAL: The patient is in no acute distress. He is alert and oriented x3. He answers all questions appropriately. His affect is appropriate fo r the given situation. NEUROLOGIC: Cranial nerves 2 through 12 are grossly intact. EOMI and PERRLA . The patient is 5/5 and equal in his bilateral upper and bilateral lower extremities, including his deltoids, triceps, biceps, wrist flexors/extensors, interossei, , iliopsoas, hamstrings, q uadriceps, plantar flexion, dorsiflexion, and EHL. Negative clonus bilaterally. Reflexes are 2+ and equal in his quadriceps tendon. 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 This finding was discussed wit h the patient. Also discussed with the patient that this finding is unchanged from his MRI that he h ad done in March of 2018, per the radiologist's review. Discussed with the patient that this will require followup as an outpatient with Dr. Gonzalez. He shoul d schedule a follow-up visit in approximately 3 to 4 weeks after discharge to discuss further surveil yvan of this area. I did discuss with the patient that this does not fully explain his headaches, l ightheadedness, or dizziness, and he should continue to work with his primary medical physician kallie ding these issues. He will also continue to follow up with his primary care doctor regarding his hyp ertension. I did discuss with the patient the importance of avoiding hypertensive episodes. This was discussed in detail with Dr. Chris Gonzalez, who has also reviewed the patient's case. /[id number]/MODL
--- NOTE | 2018-12-30 15:14 | ASMTCMCOM ---
CM Note CM Note Notes: Chart Review for Discharge Planning: Patient is a 53 year old male who presented to [facility] ED with Georgina who drove patient reporting headache, left sided chest pain, and some lightheadedness. Medical history includes hypertension, MRA in 2018 showed R ICA aneurysm (not visualized on this visit CTA of head and neck) Patient likely to discharge independent. CM to follow. D/C Plan: Independent Date Signed: 12/30/2018 03:14 PM Electronically Signed By:Shruthi Ely
[2018-12-30 16:08] VITALS: BP 138/101
--- NOTE | 2018-12-30 20:37 | PDDCSUM ---
Discharge Summary Discharge Summary: Discharge diagnosis pre syncope HTN Right distal ICA aneurysm The patient was admitted wtih symptoms of presyncope. In the ER CT was negative for CVA. CTA head and neck were obtained which showed a right ICA aneurysm measuring 3mm which was unchanged from 2018. telemetry revealed no abnormalities. an echocardiogram was obtained that was essentially normal. The patient was notably hypertensive and after being given medications and lowering his blood pressures he felt notably better. Neurosurgery was consulted to evaluate his aneurysm and they felt that he should follow up with them in a few months to determine a plan for surveillance. His blood pressure remained in good control and he felt no further symptoms. He was discharged home to follow up with his PCP in good condition. Disposition Home independent Consultation Neurosurgery Dr. Gonzalez
== END 2018-12-30 17:11 | disposition home or self-care (01) ==
LOC: CED 23:35 → F3E 12-30 05:33
PROVIDERS: ADMIT Student in an Organized Health Care Education/Training Program; ATTEND Internal Medicine
DX: R55 Syncope and collapse (principal); I67.1 Cerebral aneurysm, nonruptured; I10 Essential (primary) hypertension; K21.9 Gastro-esophageal reflux disease without esophagitis; E86.0 Dehydration
CPT/HCPCS: 70450; 70496; 70498; 93005; 93306; 96361; 96372; 96374; 96375; 99285; G0378; 80048-ER; 84484-ER; 85025-QW-ER; J1200; J1650; J2405; J2765; J3010; Q9967